=== PATIENT | male | born 1945 | race Caucasian/White ===

== ENCOUNTER 2022-01-26 21:32 | Emergency (ER) | payer MEDICAID ==
[~2022-01-26] VITALS: Ht 167.6 cm; Wt 72.6 kg
[2022-01-26] MEDS ORDERED: ALPR0.5T8 PO (22:12)
[2022-01-26] MEDS ORDERED: METOPROLOL PO (22:12)
[2022-01-26] MEDS ORDERED: ENAL5TAB21 PO (22:12)
[2022-01-26] MEDS ORDERED: ATOR10TA PO (22:12)
[2022-01-26] MEDS ORDERED: ALBU8.5H8 IH (22:12)
--- NOTE | 2022-01-26 22:15 | NUR ---
PATIENT WALKED INTO ER C/O GENARALIZED ITCHY RASH THAT STARTED AT 1300 TODAY AND IS WORSE. PATIENT STATES HE TOOK PREDNISONE AT 1700 TODAY FOR RASH. HE HAD THIS MEDICATION DUE TO HAVING SIMILAR SYMPTOMS 1 MONTH AGO IN WHICH MYRANDA ZULETA PRESCRIBED HIM FOR THE RASH. DENIES SOB.
--- NOTE | 2022-01-26 22:24 | NUR ---
DR MEJIA INTO EVAL PATIENT.
[2022-01-26 22:57] LABS: HEMATOCRIT 46.5 % (36.7-47.1); MEAN CORPUSCULAR HEMOGLOBIN 32.6 uug (23.8-33.4); MEAN CORPUSCULAR VOLUME 93.9 fL (73.0-96.2); PLATELET COUNT (AUTO) 187 K/uL (152-348)
[2022-01-26 23:11] LABS: CARBON DIOXIDE 28 mmol/L (21-32); CHLORIDE 100 mmol/L (98-107); CREATININE 1.3 mg/dL (0.6-1.3); GLUCOSE 206 mg/dL (74-106); POTASSIUM 4.7 mmol/L (3.5-5.1); UREA NITROGEN, BLOOD 17 mg/dL (7-18)
[2022-01-26 23:16] LABS: ALANINE AMINOTRANSFERASE 19 U/L (16-63); ALKALINE PHOSPHATASE 66 U/L (50-136); ASPARTATE AMINOTRANSFERASE 14 U/L (15-37); BILIRUBIN,DIRECT 0.2 mg/dL (0.0-0.2); BILIRUBIN,TOTAL 0.9 mg/dL (0.2-1.0); LIPASE 79 U/L (73-393); TOTAL PROTEIN, SERUM 6.5 g/dL (6.4-8.2)
[2022-01-26] MEDS ORDERED: HYDR-500 PO (23:21)
[2022-01-26 23:40] VITALS: BP 120/75
--- NOTE | 2022-01-26 23:40 | NUR ---
Patient discharged to home in stable condition. Written and verbal after care instructions given. Patient verbalizes understanding of instructions. Stressed follow up or return to ER for worsening s/s.
== END 2022-01-26 23:50 | disposition home or self-care (01) ==
LOC: ER 21:35 → EDSEX 21:35 → ER 23:50
DX: L50.9 Urticaria, unspecified (principal)
CPT/HCPCS: 36415; 83690; 85025; A4663